=== PATIENT | male | born 1990 | race Caucasian/White ===

== ENCOUNTER 2019-07-01 12:05 | Emergency (ER) | payer OTHER ==
[~2019-07-01] VITALS: Ht 170.2 cm; Wt 138.5 kg
[~2019-07-01 12:05] MED LIST: CLOT30CR24 TOP; FLUC150T PO; LOPE2CAP PO; ONDA4TAB8 PO
[2019-07-01 12:13] VITALS: BP 150/70; PULSE 87; RESP 18; Ht 170.2 cm; Wt 138.5 kg
--- NOTE | 2019-07-01 12:56 | ERD ---
ER Documentation Chief Complaint Chief Complaint ap & diarrhea after eating dairy; symptoms x 2 months HPI Patient is a 28-year-old male with no known past medical history presenting to the ED for severe watery diarrhea X 2 months. Patient reports symptoms started when he initially consume dairy products which is followed by multiple episodes of watery diarrhea, abdominal cramps, bloating, flatulence. Patient reports that his symptoms improve when he stops consuming dairy products however he would still consume dairy products from time to time. Reports that he now experiences diarrhea with abdominal cramps a time he consumes any type of food. Patient admits to eating [place] takeout earlier today followed by 4 episodes of watery diarrhea prior to ED visit. Patient admits that he lost over 20 pounds and is concerned. Patient denies seeing his PCP. ROS All systems reviewed and are negative except as per history of present illness. Medications Home Meds Active Scripts Ondansetron Hcl* (Zofran*) 4 Mg Tablet, 4 MG PO Q8H PRN for NAUSEA AND/OR VOMITING, #30 TAB Prov:JAS GARCIA PA-C 07/01/19 Loperamide Hcl* (Imodium*) 2 Mg Capsule, 2 MG PO .AFTER EA LOOSE BM PRN for DIARRHEA, #10 TAB Prov:JAS GARCIA PA-C 07/01/19 Clotrimazole* (Clotrimazole* AF) 1% - 30 Gm Cream.gm., 1 APPLIC TOP BID for 7 Days, TUB Prov:ABBY CSOTA NP 05/14/16 Fluconazole* (Diflucan*) 150 Mg Tablet, 150 MG PO ONCE, #1 TAB Prov:ABBY COSTA SENIOR TELECOMM[employer]ICATIONS CONSULTANT 05/14/16 Allergies Allergies: Coded Allergies: No Known Allergy (Unverified , 05/14/16) PMhx/Soc History of Surgery: Yes (appendectomy) Anesthesia Reaction: No Hx Neurological Disorder: No Hx Respiratory Disorders: No Hx Cardiac Disorders: No Hx Psychiatric Problems: No Hx Miscellaneous Medical Probl: No Hx Alcohol Use: Yes Hx Substance Use: No Hx Tobacco Use: Yes FmHx Family History: No diabetes, No coronary disease, No other Physical Exam Vitals Vital Signs Date Temp Pulse Resp B/P (MAP) Pulse Ox O2 O2 Flow FiO2 Time Delivery Rate 07/01/19 97.9 87 18 150/70 97 12:13 (96) Physical Exam Const: No acute distress Head: Atraumatic Resp: Clear to auscultation bilaterally Cardio: Regular rate and rhythm, no murmurs Abd: Soft, non tender, distended. Normal bowel sounds. Negative Powell sign, Rovsing sign, McBurney's point tenderness, guarding, rebound tenderness, Danny sign, Saldaña Munoz sign. Back: No midline or flank tenderness. Negative CVAT. Psych: Normal Mood and Affect Result Diagram: 07/01/19 1259 07/01/19 1259 Results 24 hrs Laboratory Tests Test 07/01/19 12:59 07/01/19 13:55 07/01/19 14:42 White Blood Count 10.9 10^3/ul Red Blood Count 5.40 10^6/ul Hemoglobin 16.6 g/dl Hematocrit 48.4 % Mean Corpuscular Volume 89.6 fl Mean Corpuscular Hemoglobin 30.7 pg Mean Corpuscular Hemoglobin Concent 34.3 g/dl Red Cell Distribution Width 12.6 % Platelet Count 236 10^3/UL Mean Platelet Volume 10.4 fl Immature Granulocytes % 0.400 % Neutrophils % 70.0 % Lymphocytes % 21.1 % Monocytes % 7.2 % Eosinophils % 0.9 % Basophils % 0.4 % Nucleated Red Blood Cells % 0.0 /100WBC Immature Granulocytes # 0.040 10^3/ul Neutrophils # 7.6 10^3/ul Lymphocytes # 2.3 10^3/ul Monocytes # 0.8 10^3/ul Eosinophils # 0.1 10^3/ul Basophils # 0.0 10^3/ul Nucleated Red Blood Cells # 0.0 10^3/ul Sodium Level 136 mmol/L Potassium Level 4.2 mmol/L Chloride Level 99 mmol/L Carbon Dioxide Level 30 mmol/L Anion Gap 7 Blood Urea Nitrogen 10 mg/dl Creatinine 0.61 mg/dl Est Glomerular Filtrat Rate mL/min > 60 mL/min Glucose Level 464 mg/dl Calcium Level 9.2 mg/dl Total Bilirubin 0.7 mg/dl Direct Bilirubin 0.00 mg/dl Indirect Bilirubin 0.7 mg/dl Aspartate Amino Transf (AST/SGOT) 51 IU/L Alanine Aminotransferase (ALT/SGPT) 85 IU/L Alkaline Phosphatase 139 IU/L Total Protein 7.8 g/dl Albumin 4.1 g/dl Globulin 3.70 g/dl Albumin/Globulin Ratio 1.10 Bedside Glucose 422 mg/dL 346 mg/dL Current Medications Medications Dose Sig/David Start Time Status Last (Trade) Ordered Route PRN Stop Time Admin Dose Reason Admin Sodium 1,000 ml @ Q1H ONCE 07/01/19 DC 07/01/19 Chloride 1,000 mls/hr IV 13:00 07/01/19 13:05 13:59 1 tab ONCE ONCE 07/01/19 DC 07/01/19 Diphenoxylate PO 13:00 07/01/19 13:04 HCl/ 13:01 Atropine (Lomotil) Simethicone 160 mg ONCE ONCE 07/01/19 DC 07/01/19 (Mylicon) PO 13:00 07/01/19 13:04 13:01 Insulin 1 unit ONCE ONCE 07/01/19 DC Human SC 14:00 07/01/19 Lispro 14:00 (Humalog) Diagnostic 1 ea 2 HRS AFTER 07/01/19 DC Test (Pha) HUMALOG ONCE 14:00 07/01/19 (Accu-Chek) XX 14:01 Insulin 10 unit ONCE ONCE 07/01/19 DC 07/01/19 Human SC 14:00 07/01/19 13:59 Lispro 14:01 (Humalog) Diagnostic 1 ea 2 HRS AFTER 07/01/19 DC Test (Pha) HUMALOG ONCE 14:00 07/01/19 (Accu-Chek) XX 14:01 Procedures/MDM Patient seen and evaluated for severe watery diarrhea X 2 months with weight l oss. CBC, CMP revealed hyperglycemia otherwise grossly unremarkable . IV fluids, Lomotil p.o., simethicone administered in ED. patient is most likely experiencing likely dairy allergy (lactose intolerance). Low suspicion for colitis, appendicitis, cholecystitis, pancreatitis, bacterial gastroenteritis due to an unremarkable physical exam and stable vital signs. Patient required for today's visit. Patient was given Lispro 10 units which was followed by POC glucose, which revealed 346 from 464. Patient is stable and ready for discharge. Follow-up with PCP for GI evaluation and Diabetes workup. Patient will be discharged with loperamide and simethicone. Patient was advised to avoid all dairy products for the time being. Departure Diagnosis: Primary Impression: Diarrhea Diarrhea type: functional diarrhea Qualified Codes: K59.1 - Functional diarrhea Condition: Stable Patient Instructions: Treating Diarrhea Referrals: [facility] Additional Instructions: Patient advised to return to the ED immediately for new or worsening symptoms. Patient advised to follow up with primary care provider in the next 24-48 hours. Patient verbalized understanding and agrees with treatment plan and course of action. If patient has no primary care they may follow up with [facility] [address] [place] [id number] [id number] or [facility] [address] [place] [address] JAS GARCIA PA-C Jul 01, 2019 12:56
[2019-07-01] MEDS ORDERED: DIPHENOXYLATE/ATROPINE TAB PO ONE (13:00)
[2019-07-01] MEDS ORDERED: SOD CHLORIDE 0.9% 1,000 ML IV ONE (13:00)
[2019-07-01] MEDS ORDERED: INSULIN LISPRO 100 UNIT/ML VIAL SC ONE ×2 (14:00)
[2019-07-01] MEDS ORDERED: ACCU-CHEK XX ONE ×2 (14:00)
== END 2019-07-01 15:04 | disposition home or self-care (01) ==
LOC: FTE 12:05
DX: K59.1 Functional diarrhea (principal); Z87.891 Personal history of nicotine dependence
CPT/HCPCS: 80053; 82962; 85025; 96360; 96361; 96372; J1815; J7030; Z7502; Z7610